=== PATIENT | female | born 1950 | race African-American/Black ===

== ENCOUNTER 2022-08-24 13:00 | Emergency (ER) | payer MEDICARE, MEDICAID ==
[~2022-08-24] VITALS: Ht 162.6 cm; Wt 68.0 kg
[2022-08-24] MEDS ORDERED: IBUPROFEN 400MG TABLET PO ONE (14:00)
[2022-08-24] MEDS ORDERED: METHOCARBAMOL 500MG TABLET PO ONE (14:00)
[2022-08-24 14:57] LABS: BASOPHILS % 1.1 % (0.0-2.0); CHLORIDE 112 mEq/L (98-107); EOSINOPHILS % 4.7 % (0.0-5.0); HEMATOCRIT. 33.4 % (36.0-48.0); HEMOGLOBIN. 10.9 g/dL (12.0-16.0); LYMPHOCYTES % 32.5 % (20.0-50.0); MEAN CORPUSCULAR HEMOGLOBIN 27.6 pg (28.0-32.0); MEAN CORPUSCULAR VOLUME 84.5 fL (81.0-99.0); MEAN PLATELET VOLUME 8.2 fl (7.4-10.4); MONOCYTES % 8.4 % (2.0-8.0); NEUTROPHILS % 53.3 % (40.0-76.0); PLATELET 304 x1000/uL (130-400); RED BLOOD CELL COUNT 3.95 mill/uL (4.2-5.4); RED CELL DISTRIBUTION WIDTH 17.3 % (11.6-14.6)
[2022-08-24 18:20] VITALS: BP 138/77
== END 2022-08-24 18:27 | disposition home or self-care (01) ==
LOC: ER 13:00
DX: R58 Hemorrhage, not elsewhere classified (principal)
CPT/HCPCS: 36415; 71101; 71250; 80053; 85025; 99285